=== PATIENT | male | born 1955 | race Caucasian/White ===

== ENCOUNTER 2020-10-11 13:08 | Emergency (ER) | payer MEDICARE ==
--- NOTE | 2020-10-11 13:37 | EDM.PDOC ---
ED HPI GENERAL MEDICAL PROBLEM - General Chief Complaint: Syncope Stated Complaint: MEDICAL [facility] Time Seen by Provider: 10/11/20 13:31 Source of Information: Reports: Patient, EMS, RN Notes Reviewed History Limitations: Reports: No Limitations - History of Present Illness INITIAL COMMENTS - FREE TEXT/NARRATIVE: 65-year-old gentleman presents emergency department today following a syncopal event, he had gotten up was walking towards the door all of a sudden felt very lightheaded with the help of a bystander was eased down to the floor he was conscious the whole time was visibly shaking but he said I was always cognizant was able to communicate he states he just felt very lightheaded. EKG was done on scene per report by EMS is demonstrates sinus rhythm report is unavailable at this time. He feels asymptomatic does admit to poor oral intake today - Related Data Allergies Allergy/AdvReac Type Severity Reaction Status Date / Time penicillin G Allergy Other Verified 10/11/20 13:12 Home Meds: Home Meds Benazepril [Lotensin] 20 mg PO DAILY 10/27/16 [History] Hydrochlorothiazide 25 mg PO DAILY 10/27/16 [History] Potassium Chloride [Klor-Con 10] 10 meq PO DAILY 10/27/16 [History] amLODIPine [Norvasc] 5 mg PO DAILY 10/27/16 [History] Past Medical History Cardiovascular History: Reports: Hypertension Social & Family History - Tobacco Use Tobacco Use Status *Q: Never Tobacco User - Caffeine Use Caffeine Use: Reports: Tea - Alcohol Use Days Per Week of Alcohol Use: 6 Number of Drinks Per Day: 2 Total Drinks Per Week: 12 Date of Last Drink: 10/10/20 Time of Last Drink: 20:00 - Recreational Drug Use Recreational Drug Use: No ED ROS GENERAL - Review of Systems Review Of Systems: See Below Constitutional: Reports: No Symptoms Respiratory: Reports: No Symptoms Cardiovascular: Reports: Syncope GI/Abdominal: Reports: No Symptoms ED EXAM, GENERAL - Physical Exam Exam: See Below Exam Limited By: No Limitations General Appearance: Alert, WD/WN, No Apparent Distress Respiratory/Chest: No Respiratory Distress, Lungs Clear, Normal Breath Sounds, No Accessory Muscle Use, Chest Non-Tender Cardiovascular: Regular Rate, Rhythm, No Murmur Course - Vital Signs Last Recorded V/S: Last Vital Signs Temp 97.7 F 10/11/20 13:19 Pulse 95 10/11/20 13:19 Resp 20 10/11/20 13:19 BP 142/87 H 10/11/20 13:19 Pulse Ox 97 10/11/20 13:19 Orthostatic Blood Pressure [ 108/74 Standing] Orthostatic Blood Pressure [ 112/89 Sitting] Orthostatic Blood Pressure [ 142/87 Supine] - Orders/Labs/Meds Orders: Active Orders 24 hr Category Date Time Status EKG Documentation Completion [RC] ASDIRECTED Care 10/11/20 13:35 Active EKG 12 Lead [EK] Stat Ther 10/11/20 13:35 Ordered Labs: Laboratory Tests 10/11/20 10/11/20 10/11/20 Range/Units 14:05 14:05 14:32 WBC 9.7 (4.5-11.0) K/uL RBC 4.35 (4.30-5.90) M/uL Hgb 14.2 (12.0-15.0) g/dL Hct 40.5 (40.0-54.0) % MCV 93 (80-98) fL MCH 33 H (27-31) pg MCHC 35 (32-36) % Plt Count 155 (150-400) K/uL Neut % (Auto) 87 H (36-66) % Lymph % (Auto) 7 L (24-44) % Hoke % (Auto) 5 (2-6) % Eos % (Auto) 0 L (2-4) % Baso % (Auto) 0 (0-1) % Sodium 143 (140-148) mmol/L Potassium 3.0 L (3.6-5.2) mmol/L Chloride 102 (100-108) mmol/L Carbon Dioxide 30 (21-32) mmol/L Anion Gap 14.0 (5.0-14.0) mmol/L BUN 15 (7-18) mg/dL Creatinine 1.2 (0.8-1.3) mg/dL Est Cr Clr Drug Dosing 58.58 mL/min Estimated GFR (MDRD) > 60 (>60) Glucose 104 (74-106) mg/dL Calcium 8.7 (8.5-10.1) mg/dL Ethyl Alcohol 42 mg/dL Meds: Medications Discontinued Medications Generic Name Dose Route Start Last Admin Trade Name Freq PRN Reason Stop Dose Admin Sodium Chloride 1,000 mls @ 999 mls/hr 10/11/20 14:19 10/11/20 14:24 Normal Saline IV 10/11/20 15:19 999 mls/hr .BOLUS ONE Administration Departure - Departure Time of Disposition: 15:31 Disposition: Home, Self-Care 01 Condition: Fair Clinical Impression: Syncope Qualifiers: Syncope type: vasovagal syncope Qualified Code(s): R55 - Syncope and collapse Instructions: Hypotension, [id number] Referrals: PCP,None [Primary Care Provider] - Forms: ED Department Discharge Additional Instructions: Continue to push fluids, please followup with your primary care provider in 3-5 days if not better, please call return to the emergency department with worsening of symptoms. Sepsis Event Note (ED) - Evaluation Sepsis Screening Result: No Definite Risk - Focused Exam Vital Signs: Vital Signs Temp Pulse Resp BP Pulse Ox 10/11/20 13:19 97.7 F 95 20 142/87 H 97 10/11/20 13:15 97.7 F 95 20 142/87 H 97 - My Orders Last 24 Hours: My Active Orders 10/11/20 13:35 EKG Documentation Completion [RC] ASDIRECTED EKG 12 Lead [EK] Stat - Assessment/Plan Last 24 Hours: My Active Orders 10/11/20 13:35 EKG Documentation Completion [RC] ASDIRECTED EKG 12 Lead [EK] Stat Plan: Assessment Acuity = acute Site and laterality = syncopal event probably vasovagal Etiology = probable dehydration poor oral intake Manifestations = none Location of injury = Home Lab values = CBC CMP unremarkable Plan Good improvement with liter fluids was able to tolerate a meal felt significantly better did talk to him about his alcohol abuse and dependence follow-up primary care as needed This note was dictated using [employer] voice recognition software please call with any questions on syntax or grammar.
[2020-10-11] MEDS ORDERED: Sodium Chloride 0.9% 1,000 ML IV ONE (14:19)
== END 2020-10-11 16:09 | disposition home or self-care (01) ==
LOC: JP.ED 13:08
DX: R55 Syncope and collapse (principal); I10 Essential (primary) hypertension; Z88.0 Allergy status to penicillin; Z79.899 Other long term (current) drug therapy
CPT/HCPCS: 36415; 80048; 80307; 85025; 93005; 99284; J7030; 99283

== ENCOUNTER 2021-12-04 11:08 | Emergency (ER) | payer MEDICARE ==
[2021-12-04] MEDS ORDERED: Ondansetron 4 MG/2 ML SDV IVPUSH ONE (12:12)
[2021-12-04] MEDS ORDERED: Sodium Chloride 0.9% 1,000 ML IV SCH (12:15)
== END 2021-12-04 13:52 | disposition home or self-care (01) ==
LOC: JP.ED 11:08
DX: R11.2 Nausea with vomiting, unspecified (principal); I10 Essential (primary) hypertension; K21.9 Gastro-esophageal reflux disease without esophagitis; Z88.0 Allergy status to penicillin; Z87.891 Personal history of nicotine dependence
CPT/HCPCS: 36415; 80048; 85027; 96374; 99282; 99284-25; J2405; J7030